=== PATIENT | male | born 1960 | race Caucasian/White ===

== ENCOUNTER 2021-03-04 00:57 | Inpatient (IN) | payer BC ==
[~2021-03-04] VITALS: Ht 175.3 cm; Wt 86.5 kg
--- NOTE | 2021-03-04 01:08 | NUR ---
EKG DONE IN TRIAGE; UNABLE TO OBTAIN TEMP PT. DRY-HEAVING.
[2021-03-04] MEDS ORDERED: MECLIZINE CHEWABLE 25 MG TAB PO ONE (01:30)
[2021-03-04] MEDS ORDERED: ONDANSETRON 2MG/ML, 2ML IVPush ONE (01:30)
[2021-03-04] MEDS ORDERED: SODIUM CHLORIDE 0.9% 1,000ML IVBOLUS ONE ×2 (01:30→04:30)
[2021-03-04] MEDS ORDERED: ONDANSETRON 2MG/ML, 2ML ONE (01:31)
[2021-03-04] MEDS ORDERED: MECLIZINE CHEWABLE 25 MG TAB ONE (01:31)
[2021-03-04 01:39] LABS: BASOPHILS % (AUTO) 1 % (0-1); EOSINOPHILS % (AUTO) 5 % (1-7); LYMPHOCYTES % (AUTO) 30 % (22-44); MEAN CORPUSCULAR HEMOGLOBIN 29.9 pg (27.5-34.5); MEAN CORPUSCULAR HGB CONC 35.5 g/dL (33.2-36.2); MEAN PLATELET VOLUME 6.9 fL (7.4-10.4); MONOCYTES % (AUTO) 9 % (2-9); NEUTROPHILS % (AUTO) 56 % (42-75); PLATELET COUNT 220 x10^3/uL (130-400); RED BLOOD COUNT 5.07 x10^6/uL (4.38-5.82); RED CELL DISTRIBUTION WIDTH 13.9 % (9.4-14.8)
[2021-03-04 01:41] LABS: MD NO
--- NOTE | 2021-03-04 01:41 | NUR ---
PT RESTING IN BED, STATES FEELING NAUSEASU WHILE EYS OPEN, EQUAL STRENTH IN ALL EXTREMTIES, SENSATION INTACT HEAD TO TOE, SPEECH CLEAR, TOUNGE MIDLINE, NO SWALLOWING DIFFICULTIES, NYSTAGMUS NOTED, EKG DONE IN TRIAGE. PIV PLACED, MEDICATED PER EMAR, LABS SENT, CXR TAKEN. NO OTHER NEEDS AT THIS TIME. WIOLL CONTINUE TO MONITOR
[2021-03-04 01:51] LABS: ALANINE AMINOTRANSFERASE 31 U/L (12-78); ANION GAP 10 mmol/L (5-15); CHLORIDE 108 mmol/L (98-107); CREATININE 1.08 mg/dL (0.7-1.3)
[2021-03-04 01:54] LABS: INTERNATIONAL NORMALIZED RATIO 0.96 (0.93-1.1); PROTHROMBIN TIME 10.3 Seconds (9.6-11.5)
[2021-03-04 01:55] LABS: ALKALINE PHOSPHATASE 62 U/L (45-117); BILIRUBIN,TOTAL 0.5 mg/dL (0.2-1.0); TOTAL PROTEIN 7.6 g/dL (6.4-8.2); TROPONIN I < 0.015 ng/mL (0.000-0.045)
[2021-03-04] MEDS ORDERED: OMNIPAQUE 350 MG/ML, 100ML BOTTLE ONE (02:11)
[2021-03-04] MEDS ORDERED: PROMETHAZINE 25 MG/ML, 1ML ONE (03:49)
[2021-03-04] MEDS ORDERED: PROMETHAZINE 25 MG/ML, 1ML IM ONE (04:00)
--- NOTE | 2021-03-04 04:19 | NUR ---
HOSP AT BEDSIDE
[2021-03-04] MEDS ORDERED: SODIUM CHLORIDE 0.9% 1,000 ML IV SCH (04:30)
[2021-03-04] MEDS ORDERED: ONDANSETRON 2MG/ML, 2ML IVPush PRN (04:30)
[2021-03-04] MEDS ORDERED: METOCLOPRAMIDE 5 MG/ML, 2ML IVPush PRN (04:30)
[2021-03-04] MEDS ORDERED: ACETAMINOPHEN 325 MG TABLET PO PRN (04:30)
--- NOTE | 2021-03-04 04:49 | NUR ---
REPORT GIVEN TO KYRA YU
[2021-03-04] MEDS ORDERED: MECLIZINE 25 MG TABLET PO PRN (05:00)
[2021-03-04 05:01] LABS: BASOPHILS % (AUTO) 0 % (0-1); EOSINOPHILS % (AUTO) 0 % (1-7); LYMPHOCYTES % (AUTO) 8 % (22-44); MEAN CORPUSCULAR HEMOGLOBIN 29.6 pg (27.5-34.5); MEAN CORPUSCULAR HGB CONC 34.8 g/dL (33.2-36.2); MEAN PLATELET VOLUME 6.8 fL (7.4-10.4); MONOCYTES % (AUTO) 5 % (2-9); NEUTROPHILS % (AUTO) 86 % (42-75); PLATELET COUNT 198 x10^3/uL (130-400); RED BLOOD COUNT 4.76 x10^6/uL (4.38-5.82); RED CELL DISTRIBUTION WIDTH 13.5 % (9.4-14.8)
[2021-03-04 05:04] VITALS: BP 160/104
[2021-03-04 05:04] LABS: MD NO
[2021-03-04 05:12] LABS: ALBUMIN 3.6 g/dL (3.4-5.0); ANION GAP 5 mmol/L (5-15); CALCIUM 8.3 mg/dL (8.5-10.1); CHLORIDE 112 mmol/L (98-107)
[2021-03-04 05:15] LABS: ALANINE AMINOTRANSFERASE 27 U/L (12-78); ALKALINE PHOSPHATASE 53 U/L (45-117); BILIRUBIN,TOTAL 0.5 mg/dL (0.2-1.0); CHOL/HDL RATIO 5.7; CHOLESTEROL, TOTAL 172 mg/dL (140-239); CREATININE 0.82 mg/dL (0.7-1.3); HDL CHOL % 17 % (26-37); HDL CHOLESTEROL (DIRECT) 30 mg/dL (40-60); LDL CHOLESTEROL,CALCULATED 107 mg/dL (54-169); LDL/HDL RATIO 3.6 (0.5-3.0); TOTAL PROTEIN 6.9 g/dL (6.4-8.2); TRIGLYCERIDES 173 mg/dL (50-200); VLDL CHOLESTEROL 35 mg/dL (0-25)
[2021-03-04 06:07] VITALS: BP 142/95
[2021-03-04] MEDS: FAMOTIDINE 20 MG TABLET PO SCH ×2 (08:53→19:55)
[2021-03-04 13:47] VITALS: BP 151/105
[2021-03-04 13:48] VITALS: BP 163/102
[2021-03-04 19:12] VITALS: BP 162/103
[2021-03-04] MEDS: PROMETHAZINE 25 MG/ML, 1ML IM PRN (19:51)
[2021-03-04] MEDS: MECLIZINE CHEWABLE 25 MG TAB PO SCH (19:53)
[2021-03-04] MEDS: ACETAMINOPHEN 650 MG SUPP PR PRN (19:55)
[2021-03-05 00:37] VITALS: BP 157/96
[2021-03-05] MEDS: PROMETHAZINE 25 MG/ML, 1ML IM PRN (03:45)
[2021-03-05] MEDS: MECLIZINE CHEWABLE 25 MG TAB PO SCH ×2 (03:46→11:30)
[2021-03-05] MEDS: ACETAMINOPHEN 650 MG SUPP PR PRN (03:46)
[2021-03-05 05:35] LABS: BASOPHILS % (AUTO) 0 % (0-1); EOSINOPHILS % (AUTO) 2 % (1-7); LYMPHOCYTES % (AUTO) 24 % (22-44); MEAN CORPUSCULAR HEMOGLOBIN 30.3 pg (27.5-34.5); MEAN CORPUSCULAR HGB CONC 35.5 g/dL (33.2-36.2); MEAN PLATELET VOLUME 6.9 fL (7.4-10.4); MONOCYTES % (AUTO) 11 % (2-9); NEUTROPHILS % (AUTO) 62 % (42-75); PLATELET COUNT 190 x10^3/uL (130-400); RED BLOOD COUNT 4.87 x10^6/uL (4.38-5.82); RED CELL DISTRIBUTION WIDTH 13.7 % (9.4-14.8)
[2021-03-05 05:40] LABS: MD NO
[2021-03-05 05:48] LABS: CHLORIDE 110 mmol/L (98-107)
[2021-03-05 05:55] LABS: ALANINE AMINOTRANSFERASE 28 U/L (12-78); ALBUMIN 3.8 g/dL (3.4-5.0); ALKALINE PHOSPHATASE 52 U/L (45-117); ANION GAP 6 mmol/L (5-15); BILIRUBIN,TOTAL 0.9 mg/dL (0.2-1.0); CALCIUM 8.9 mg/dL (8.5-10.1); CREATININE 0.81 mg/dL (0.7-1.3); TOTAL PROTEIN 7.5 g/dL (6.4-8.2)
[2021-03-05 07:24] VITALS: BP 151/96
[2021-03-05] MEDS: FAMOTIDINE 20 MG TABLET PO SCH (07:44)
[2021-03-05] MEDS ORDERED: SCOPOLAMINE 1MG PATCH TD SCH (09:00)
[2021-03-05] MEDS ORDERED: Scopolamine Transderm TD (09:59)
[2021-03-05] MEDS ORDERED: Meclizine PO (09:59)
== END 2021-03-05 13:10 | disposition home or self-care (01) | DRG 392 ==
LOC: ED 02:00 → EDIP 03:49 → 3N 04:59 → DCLOUNGE 03-05 13:02
PROVIDERS: ADMIT Family Medicine; ATTEND Family Medicine
DX: R11.2 Nausea with vomiting, unspecified (principal); R42 Dizziness and giddiness; H55.00 Unspecified nystagmus; K76.0 Fatty (change of) liver, not elsewhere classified; H93.19 Tinnitus, unspecified ear; Z86.73 Personal history of transient ischemic attack (TIA), and cerebral infarction without residual deficits
CPT/HCPCS: 36415; 70450; 70496; 70498; 70551; 71045; 76700; 80053; 80061; 83690; 83735; 84484; 85025; 85610; 85730; 93005; 96372; 96374; G0378; J2405; J2550; Q9967; J7030